=== PATIENT | female | born 2005 | race Two or more races ===

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

== ENCOUNTER 2023-01-13 11:33 | Emergency (ER) | payer OTHER ==
[2023-01-13] MEDS ORDERED: KETOROLAC 30 MG/ML VIAL IM STA (11:50)
--- NOTE | 2023-01-13 11:53 | ED Physician Documentation ---
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 She reports that she was loading a bomb onto an airplane when she was squatting down and pushing up forcefully. She felt a pop in her posterior hip region and has had pain since. Pain is sharp and radiates into the low back and down the left thigh. No saddle anesthesia, loss of bowel or bladder function she is ambulatory. Review of Systems Constitutional: denies: Fever, Chills Cardiac: reports: Reviewed and negative Respiratory: reports: Reviewed and negative : reports: Reviewed and negative Musculoskeletal: reports: Joint pain PD PAST MEDICAL HISTORY - Past Medical History Past Medical History: No - Past Surgical History Past Surgical History: No - Present Medications Home Medications: Ambulatory Orders Medication Instructions Recorded Confirmed No Known Home Medications 01/13/23 01/13/23 - Allergies Allergies/Adverse Reactions: Allergies Allergy/AdvReac Type Severity Reaction Status Date / Time No Known Drug Allergies Allergy Verified 01/13/23 11:43 - Social History Does the pt smoke?: No Smoking Status: Never smoker Does the pt drink ETOH?: No Does the pt have substance abuse?: No - Immunizations Immunizations are current?: Yes PD ED PE NORMAL - General General: Alert and oriented X 3, No acute distress, Well developed/nourished - HEENT HEENT: Atraumatic - Cardiac Cardiac: RRR, No murmur - Respiratory Respiratory: No respiratory distress, Clear bilaterally - Back Back: No spinal TTP (no midline limbar ttp. mild ttp of the left paraspinous muscles. Full ROM of hip in all planes, though pain is elicited with movement in the posterior buttock and low back) - Derm Derm: Normal color, No rash - Extremities Extremities: No deformity, No tenderness to palpate (tenderness with left hip palpation), Normal ROM s pain, No edema Results - Vitals Vitals: Vital Signs - 24 hr 01/13/23 11:43 Temperature 36.3 C L Heart Rate 86 Respiratory 16 Rate Blood Pressure 111/64 O2 Saturation 100 Oxygen O2 Source Room air - Rads (name of study) left hip xr Relevant Findings:: EMP independent interpretation of test (No acute findings to suggest fracture) PD Medical Decision Making - ED course Complexity details: reviewed results, re-evaluated patient, d/w patient ED course: 17-year-old female presents emergency department for evaluation of acute left hip pain sustained when she was squatting to place a bomb underneath a jet and the pushing motion resulted in a pop in her posterior hip region. She is ambu latory though it is painful. Most of the pain was elicited with palpation of the lower paraspinous muscles of the back and the gluteal region. X-rays interpreted by myself showed no acute findings. I suspect she has a hip and gluteal muscle strain. She is advised ibuprofen and Tylenol. She will follow- up with [facility]. Clinically there are no red flags to suggest cauda equina or spinal epidural abscess. The usual emergent return precautions for worsening symptoms was discussed. Departure - Departure Disposition: 01 Home, Self Care Clinical Impression: Left hip pain Condition: Stable Record reviewed to determine appropriate education?: Yes Instructions: ED Strain Muscle Ext Comments: [place], The x-ray of your hip does not show any broken bones. The history of the injury suggest that you have strained or pulled the lower back muscles or gluteal muscles. In general I would like you to take 600 mg of ibuprofen with food 3 times a day or alternate with 500 mg of Tylenol also 3 times a day. You can place ice on the low back and hip at the place where it is most painful for 10 minutes 2-3 times a day. With most simple strains pain and symptoms will begin to improve over a week or so. If not markedly improved you may need to be seen by [facility] for evaluation with physical therapy. Until seen by [facility] no lifting pushing or pulling greater than 10 pounds. Forms: PCP List
[2023-01-13 11:55] VITALS: BP 111/64; O2SAT 100
--- NOTE | 2023-01-13 12:15 | XRAY Report ---
PROCEDURE: Hip w/Pelvis 2-3V LT INDICATIONS: pain with squatting TECHNIQUE: AP pelvis with lateral view(s) of the left hip(s). COMPARISON: None. FINDINGS: Bones: No fractures or dislocations. No suspicious bony lesions. Soft tissues: No suspicious soft tissue calcifications or masses. IMPRESSION: No acute bony abnormality. Reviewed by: Tennille Eastman MD on 01/13/2023 12:13 PM PDT Approved by: Tennille Eastman MD on 01/13/2023 12:13 PM PDT Station ID: [id number]
== END 2023-01-13 12:13 | disposition home or self-care (01) ==
LOC: ED 11:33
DX: M25.552 Pain in left hip (principal)
CPT/HCPCS: 96372; 99283

== ENCOUNTER 2023-03-31 21:34 | Outpatient (CLI) | payer OTHER | END 2023-03-31 21:35 | disposition critical access hospital (66) | LOC: EMS 21:34 | DX: R07.2 Precordial pain (principal); R11.0 Nausea | CPT/HCPCS: A0425; A0427 ==

== ENCOUNTER 2023-03-31 21:59 | Emergency (ER) | payer OTHER ==
[2023-03-31] MEDS ORDERED: FAMOTIDINE 20 MG/2 ML VIAL IVP STA (22:04)
[2023-03-31] MEDS ORDERED: METOCLOPRAMIDE 10 MG/2 ML VIAL IVP STA (22:04)
[2023-03-31] MEDS ORDERED: diphenhydrAMINE ELIXIR 25 MG/10 ML UDC PO STA (22:05)
[2023-03-31] MEDS ORDERED: SODIUM CHLORIDE 0.9% 1,000 ML IV STA (22:05)
[2023-03-31] MEDS ORDERED: MAG HYDROX/AL HYDROX/SIMETH 30 ML UDC PO STA (22:05)
[2023-03-31] MEDS ORDERED: LIDOCAINE VISCOUS 2% 15 ML ORAL SYRINGE MM STA (22:05)
--- NOTE | 2023-03-31 22:08 | ED Physician Documentation ---
History of Present Illness - Stated complaint Stated Complaint: CP - History obtained from History obtained from: Patient, EMS - Additonal information Additional information: 17yF previously healthy p/w sudden onset burning CP starting 50 minutes after eating some seafood tonight. patient was uncomfortable appearing on ems arrival, breathing laboriously. received 2 nitro en route and 4mg IV zofran. denies cough, fever, hemoptysis, leg swelling, diarrhea, abdominal pain. PD PAST MEDICAL HISTORY - Past Surgical History Past Surgical History: No - Present Medications Home Medications: Ambulatory Orders Medication Instructions Recorded Confirmed No Known Home Medications 01/13/23 01/13/23 - Allergies Allergies/Adverse Reactions: Allergies Allergy/AdvReac Type Severity Reaction Status Date / Time No Known Drug Allergies Allergy Verified 03/31/23 22:06 - Social History Does the pt smoke?: No Smoking Status: Never smoker Does the pt drink ETOH?: No Does the pt have substance abuse?: No - Immunizations Immunizations are current?: Yes PD ED PE NORMAL - Vitals Vital signs reviewed: Yes - General General: Alert and oriented X 3, No acute distress, Well developed/nourished, Other (uncomfortable appearing, holding emesis bag) - HEENT HEENT: Atraumatic, PERRL, EOMI, Moist mucous membranes, Pharynx benign - Neck Neck: Supple, no meningeal sign - Cardiac Cardiac: RRR - Respiratory Respiratory: No respiratory distress, Clear bilaterally - Derm Derm: Normal color, Warm and dry Results - Vitals Vitals: Vital Signs - 24 hr 03/31/23 22:02 Temperature 37.1 C Heart Rate 77 Respiratory 18 Rate Blood Pressure 118/66 O2 Saturation 100 Oxygen O2 Source Room air - EKG (time done) 2203 EKG releavant findings:: EKG personally interpreted by author of this note. Relevant findings are: Rate: Rate (enter#) (73) Rhythm: NSR [place]: Normal Intervals: Normal IA QRS: Normal Ischemia: Normal ST segments - Labs Labs: Laboratory Tests 03/31/23 03/31/23 22:04 22:04 WBC 9.9 RBC 4.91 Hgb 13.1 Hct 41.6 MCV 84.7 MCH 26.7 L MCHC 31.5 L RDW 13.2 Plt Count 271 MPV 10.4 Neut # (Auto) 6.1 Lymph # (Auto) 2.8 [place] # (Auto) 0.6 Eos # (Auto) 0.3 Baso # (Auto) 0.0 Absolute Nucleated RBC 0.00 Nucleated RBC % 0.0 Sodium 135 Potassium 3.5 Chloride 104 Carbon Dioxide 19 L Anion Gap 12.0 BUN 11 Creatinine 0.7 Estimated GFR (MDRD) 108 Glucose 114 H Calcium 9.5 Total Bilirubin 0.4 AST 13 ALT 10 Alkaline Phosphatase 72 Total Protein 6.6 Albumin 4.6 Globulin 2.0 L Albumin/Globulin Ratio 2.3 H Lipase 29 Beta HCG, Quant < 0.6 PD Medical Decision Making - ED course ED course: 17yF presents with atypical cp, soa 50 minutes after eating seafood tonight. previously healthy and had been feeling normal earlier. 2 nitro en route with subsequent nausea and 4mg zofran given by ems. upon arrival patient is anxious appearing, uncomfortable appearing, with emesis bag. ordered GI cocktail, pepcid, ivf, and labwork including cbc, abdominal panel. labwork normal. ekg noncontributory. cxr normal. likely GI etiology. plan to dc home and f/u with pcp as outpatient. return precautions given. Departure - Departure Disposition: Home, Self Care Clinical Impression: Chest pain Condition: Stable Instructions: ED Chest Pain NonCardiac Comments: You were seen in the emergency department for chest pain. Your labs, chest x- ray, EKG all looked okay. Please follow-up with your primary care provider and return to the emergency department if you have any new or worsening symptoms or other concerns. Forms: PCP List
[2023-03-31 22:11] LABS: BASOPHILS % (AUTO) 0.4 %; EOSINOPHILS # (AUTO) 0.3 10^3/uL (0.0-0.7); HCT - HEMATOCRIT 41.6 % (37.0-47.0); HGB - HEMOGLOBIN 13.1 g/dL (12.0-16.0); LYMPHOCYTES # (AUTO) 2.8 10^3/uL (1.5-3.5); LYMPHOCYTES % (AUTO) 28.6 %; MEAN CORPUSCULAR HEMOGLOBIN 26.7 pg (27.0-31.0); MEAN CORPUSCULAR HGB CONC 31.5 g/dL (32.0-36.0); MEAN CORPUSCULAR VOLUME 84.7 fL (81.0-99.0); MEAN PLATELET VOLUME 10.4 fL (7.9-10.8); MONOCYTES # (AUTO) 0.6 10^3/uL (0.0-1.0); NEUTROPHILS # (AUTO) 6.1 10^3/uL (1.5-6.6); NEUTROPHILS % (AUTO) 61.6 %; PLT - PLATELET COUNT 271 10^3/uL (130-450); RED BLOOD COUNT 4.91 10^6/uL (4.20-5.40); RED CELL DISTRIBUTION WIDTH 13.2 % (12.0-15.0); WHITE BLOOD COUNT 9.9 x10^3/uL (4.8-10.8)
[2023-03-31 22:28] LABS: ALBUMIN 4.6 g/dL (3.2-5.5); ALBUMIN/GLOBULIN RATIO 2.3 (1.0-2.2); ALKALINE PHOSPHATASE 72 IU/L (42-121); ALT ALANINE AMINOTRANSFERASE 10 IU/L (10-60); AST ASPARTATE AMINOTRANSFERASE 13 IU/L (10-42); BILIRUBIN,TOTAL 0.4 mg/dL (0.2-1.0); BUN - BLOOD UREA NITROGEN 11 mg/dL (6-20); CALCIUM 9.5 mg/dL (8.5-10.3); CARBON DIOXIDE - CO2 19 mmol/L (21-32); CHLORIDE 104 mmol/L (101-111); CREATININE 0.7 mg/dL (0.6-1.3); GFR - MDRD 108 (>89); GLUCOSE 114 mg/dL (74-104); LIPASE 29 U/L (11-82); POTASSIUM 3.5 mmol/L (3.5-4.5); SODIUM 135 mmol/L (135-145); TOTAL PROTEIN 6.6 g/dL (6.4-8.9)
--- NOTE | 2023-03-31 22:44 | XRAY Report ---
PROCEDURE: Chest 1 View X-Ray INDICATIONS: Chest Pain TECHNIQUE: One view of the chest was acquired. COMPARISON: None. FINDINGS: Surgical changes and devices: None. Lungs and pleura: No pleural effusions or pneumothorax. Lungs are clear. Mediastinum: Mediastinal contours appear normal. Heart size is normal. Bones and chest wall: No suspicious bony lesions. Overlying soft tissues appear unremarkable. IMPRESSION: No acute cardiopulmonary process. Reviewed by: Jose Denis on 03/31/2023 10:43 PM [facility] Approved by: Jose Denis on 03/31/2023 10:43 PM [facility] Station ID: [id number]
[2023-03-31 23:26] VITALS: BP 115/79; O2SAT 98
== END 2023-03-31 23:25 | disposition home or self-care (01) ==
LOC: EDSEX → EDUNIT# → EDBD → ED 21:59
DX: R07.9 Chest pain, unspecified (principal)
CPT/HCPCS: 36415; 71045; 80053; 83690; 84702; 85025; 93005; 96374; 99283; 99284; A9270; J2765

== ENCOUNTER 2023-07-08 06:38 | Emergency (ER) | payer OTHER ==
[2023-07-08 06:56] VITALS: O2SAT 100
--- NOTE | 2023-07-08 07:27 | ED Physician Documentation ---
PD HPI CHEST PAIN - Stated complaint Stated Complaint: L SIDE PX/SOA - Chief complaint Chief Complaint: General - History obtained from History obtained from: Patient - History of Present Illness Timing - onset: Today Timing - onset during: Rest Timing - duration: Hours Timing - details: Abrupt onset, Still present Quality: Sharp, Pain Location: Left chest (parasternal) Radiation: Back. No: Jaw, Neck Improved by: Rest Worsened by: Inspiration, Movement, Palpation. No: Eating Associated symptoms: No: Shortness of air, Nausea, Vomiting, Feeling faint / dizzy, Cough Similar symptoms before: Has not had sx before Review of Systems Constitutional: denies: Fever, Chills Throat: denies: Sore throat Respiratory: denies: Cough Musculoskeletal: denies: Extremity swelling PD PAST MEDICAL HISTORY - Past Medical History Past Medical History: No Cardiovascular: None Respiratory: None - Past Surgical History Past Surgical History: No - Present Medications Home Medications: Ambulatory Orders Medication Instructions Recorded Confirmed Acetaminophen [Acetaminophen Extra 500 mg PO QID PRN #50 tablet 07/08/23 Strength] Ibuprofen [Motrin] 600 mg PO TID PRN #25 tab 07/08/23 - Allergies Allergies/Adverse Reactions: Allergies Allergy/AdvReac Type Severity Reaction Status Date / Time No Known Drug Allergies Allergy Verified 07/08/23 06:55 - Social History Does the pt smoke?: No Smoking Status: Never smoker Does the pt drink ETOH?: No Does the pt have substance abuse?: No - Immunizations Immunizations are current?: Yes - POLST Patient has POLST: No PD ED PE NORMAL - Vitals Vital signs reviewed: Yes - General General: Alert and oriented X 3, No acute distress, Well developed/nourished - Cardiac Cardiac: RRR, No murmur - Respiratory Respiratory: No respiratory distress, Clear bilaterally, Other (focal chestwall tenderness left parasternal area without redness, sores, crepitance, rash.) Results - Vitals Vitals: Vital Signs - 24 hr 07/08/23 07/08/23 07/08/23 06:49 06:52 08:29 Temperature 36.9 C Heart Rate 72 70 62 Respiratory 15 15 16 Rate Blood Pressure 107/67 109/65 O2 Saturation 100 100 100 Oxygen O2 Source Room air - Rads (name of study) chest xray Relevant Findings:: Prelim report reviewed, EMP independent interpretation of test (normal appearance.) PD Medical Decision Making - ED course Complexity details: reviewed results (CXR is normal. ), considered differential (no noted injury, no recent URI, negative travel, PERC negative. Pain with movement, palpation, breathing locally left chest. ), d/w patient Departure - Departure Disposition: 01 Home, Self Care Clinical Impression: Musculoskeletal chest pain Condition: Stable Record reviewed to determine appropriate education?: Yes Instructions: ED Strain Chest Wall Follow-Up: JAIME REESE MD [Primary Care Provider] - Prescriptions: Acetaminophen [Acetaminophen Extra Strength] 500 mg PO QID PRN #50 tablet PRN Reason: Pain Ibuprofen [Motrin] 600 mg PO TID PRN #25 tab PRN Reason: Pain Comments: Your oxygenation level is good and your lungs sound clear. Your chest x-ray does not show any obvious lung abnormality. The character and type of pain does not sound like heart related. It does sound muscular in the chest wall. This sometimes relates to a viral illness and areas of muscle pain can precipitate more locally like this. At this point I would presume musculoskeletal and treated with anti-inflammatory such as ibuprofen 600 mg 3 times daily for the next several days to week. Add Tylenol every 4-6 hours if needed for pain. If you are to have these at home and then continue with that. I did write a separate prescription in case. 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 See how you do generally with other symptoms. You may develop some level of cough or such to correspond with this. Continue your inhaler as needed. Forms: PCP List, Activity restrictions Discharge Date/Time: 07/08/23 08:33
[2023-07-08] MEDS: ACETAMINOPHEN 325 MG TABLET PO STA (08:00)
[2023-07-08] MEDS: IBUPROFEN 600 MG TABLET PO STA (08:00)
--- NOTE | 2023-07-08 08:09 | XRAY Report ---
PROCEDURE: Chest 2V INDICATIONS: left lateral chest pain today TECHNIQUE: 2 views of the chest were acquired. COMPARISON: 03/31/2023 FINDINGS: Surgical changes and devices: None. Lungs and pleura: No dense consolidation or pleural effusion Mediastinum: Normal heart size Bones and chest wall: Unremarkable IMPRESSION: No acute radiographic abnormality. Reviewed by: Ed Gloria MD on 07/08/2023 8:08 AM [facility] Approved by: Ed Gloria MD on 07/08/2023 8:08 AM [facility] Station ID: [id number]
[2023-07-08 08:32] VITALS: BP 109/65
== END 2023-07-08 08:33 | disposition home or self-care (01) ==
LOC: ED 06:38
DX: R07.89 Other chest pain (principal)
CPT/HCPCS: 71046; 99283; 99284; A9270

== ENCOUNTER 2023-11-29 12:27 | Outpatient (CLI) | payer OTHER ==
--- NOTE | 2023-11-30 11:00 | Ultrasound Report ---
LIMITED ULTRASOUND OF RIGHT BREAST: 11/29/2023 CLINICAL: Palpable right breast lump. No prior exams were available for comparison. Color flow ultrasound of the right breast 10 o'clock region was performed. Lambert scale images of the real-time examination were reviewed. No significant abnormalities were seen sonographically in the right breast. IMPRESSION: NEGATIVE There is no sonographic evidence of malignancy. There is no abnormality seen in the right breast to correspond with the area of clinical concern at 1 0 o'clock, however, clinical correlation and clinical followup are recommended. This exam was interpreted at Station ID: [id number]. Electronically Signed By: Ed Gloria M.D. lc/:11/29/2023 13:05:11 letter sent: No_Letter Ultrasound BI-RADS: 1 Negative BI-RADS CATEGORY: (1) - 1 Unspecified - other recall n/a LATERALITY: (B)
== END 2023-11-29 12:28 | disposition home or self-care (01) ==
LOC: DI 12:27
DX: N63.11 Unspecified lump in the right breast, upper outer quadrant (principal)